=== PATIENT | female | born 1990 | race Hispanic/Latino ===

== ENCOUNTER 2018-08-16 07:30 | Emergency (ER) | payer BC ==
[2018-08-16] MEDS ORDERED: Fentanyl 100 MCG/2 ML VIAL ONE (08:11)
[2018-08-16 08:19] LABS: #Basophils 0.1 thou/uL (0.0-0.2); #Eosinphils 0.1 thou/uL (0.0-0.7); #Lymphocytes 2.3 thou/uL (1.20-3.40); #Monocytes 0.5 thou/uL (0.11-0.59); #Neutrophils 6.5 thou/uL (1.40-6.50); %Basophils 0.6 % (0.0-1.0); %Eosinophils 1.3 % (0.0-10.0); %Lymphocytes 24.4 % (21.0-51.0); %Monocytes 4.9 % (0.0-10.0); %Neutrophils 68.8 % (42.0-75.0); Hemoglobin 13.8 g/dL (12.0-16.0); Mean Corpuscular HGB CONC 32.6 g/dL (32.0-36.0); Mean Corpuscular Hemoglobin 30.4 pg (27.0-31.0); Mean Corpuscular Volume 93.3 fL (78.0-98.0); Mean Platelet Volume 8.8 fL (7.4-10.4); Platelet Count 216 thou/uL (130-400); RBC Distribution Width 12.3 % (11.5-14.5); Red Blood Cell (RBC) Count 4.54 mill/uL (4.20-5.40); White Blood Cell (WBC) Count 9.5 thou/uL (4.8-10.8)
[2018-08-16 08:24] LABS: BHCG - Serum Negative (NEGATIVE); Pregs Control Background? CLEAR/WHITE (CLR/WHITE); Pregs Control Bar Appear? YES (CONTROL BAR)
[2018-08-16 08:29] LABS: PTT 27.7 SEC (22.9-36.1); Prothrombin Time 13.1 SEC (12.0-14.7)
[2018-08-16 08:37] LABS: ALT (SGPT) 26 U/L (8-55); AST (SGOT) 36 U/L (5-34); Albumin 4.3 g/dL (3.5-5.0); Alcohol Less than 10 mg/dL (Less than 10); Alkaline Phosphatase 118 U/L (40-150); Anion Gap 11 mmol/L (10-20); BUN (Urea Nitrogen) 13 mg/dL (7.0-18.7); Bilirubin, Total 0.3 mg/dL (0.2-1.2); Calc. Creatinine Clearance 0 mL/min (70-130); Calcium 9.5 mg/dL (7.8-10.44); Carbon Dioxide 26 mmol/L (22-29); Chloride 103 mmol/L (98-107); Estimated GFR-MDRD 90; Globulin 3.5 g/dL (2.4-3.5); Glucose 112 mg/dL (70-105); Lipase 28 U/L (8-78); Potassium 3.8 mmol/L (3.5-5.1); Protein, Total 7.8 g/dL (6.0-8.3); Sodium 136 mmol/L (136-145)
--- NOTE | 2018-08-16 08:43 | RAD ---
SINGLE VIEW OF THE CHEST: Comparison: None. History: Chest pain, low back pain. FINDINGS: Single view of the chest shows a normal sized cardiomediastinal silhouette. There is no evidence of c onsolidation, mass, or pleural effusion. The bones are unremarkable. IMPRESSION: No evidence of acute cardiopulmonary disease. POS: [facility]
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
[2018-08-16] MEDS ORDERED: Lidocaine 1% PF 5 ML VIAL ONE (11:00)
[2018-08-16] MEDS ORDERED: Morphine 2 MG/ML SYRINGE ONE (11:01)
[2018-08-16] MEDS ORDERED: ISOVUE-370 76%-LOCM 1 ML ONE (11:59)
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
--- NOTE | 2018-08-21 21:29 | EKG ---
Test Reason : Blood Pressure : / mmHG Vent. Rate : 101 BPM Atrial Rate : 101 BPM P-R Int : 142 ms QRS Dur : 078 ms QT Int : 342 ms P-R-T Axes : 041 024 -07 degrees QTc Int : 443 ms Sinus tachycardia Otherwise normal ECG Confirmed by DUNCAN WATKINS MD ([id number]), sports editor ADELE MCDONALD ([id number]) on 08/21/2018 9:28:01 PM Also confirmed by DUNCAN WATKINS MD ([id number]), sports editor ADELE MCDONALD ([id number]) on 08/21/2018 9:28:57 PM Referred By: Confirmed By:DUNCAN WATKINS MD
== END 2018-08-16 12:29 | disposition home or self-care (01) ==
LOC: ERS 07:30
DX: S52.501A Unspecified fracture of the lower end of right radius, initial encounter for closed fracture (principal); S52.611A Displaced fracture of right ulna styloid process, initial encounter for closed fracture; V49.59XA Passenger injured in collision with other motor vehicles in traffic accident, initial encounter
CPT/HCPCS: 25605; 70450; 71045; 71260; 72125; 74177; 80053; 80307; 83690; 84703; 85025; 85610; 85730; 93005; 96361; 96374; 96375; J2001; J2270; J3010

== ENCOUNTER 2018-08-24 11:28 | Day surgery (SDC) | payer BC ==
[2018-08-23 15:09] VITALS: BMI 29.2
[2018-08-24] MEDS ORDERED: Midazolam HCl 2 mg/2 ml Vial ONE ×2 (11:38→13:10)
[2018-08-24] MEDS ORDERED: Fentanyl 100 MCG/2 ML VIAL ONE ×2 (11:39→13:10)
[2018-08-24] MEDS ORDERED: Dexamethasone 4 mg/ml Vial ONE ×2 (11:40→13:46)
[2018-08-24] MEDS ORDERED: CEFAZOLIN 2 GM/50 ML BAG ONE (13:06)
[2018-08-24] MEDS ORDERED: Bupivacaine HCl 0.5%/Epinephrine 1:200,000/PF 30 ml Vial ONE (13:33)
[2018-08-24] MEDS ORDERED: PHENYLEPHRINE-NS 100 MCG/ML 10 ML SYRINGE ONE (14:58)
[2018-08-24] MEDS ORDERED: PROPOFOL 200 MG/20 ML VIAL ONE (14:58)
[2018-08-24] MEDS ORDERED: Dexamethasone 20 MG/5 ML VIAL ONE (14:58)
[2018-08-24] MEDS ORDERED: Lidocaine 1% PF 5 ML VIAL ONE (14:58)
[2018-08-24] MEDS ORDERED: Ondansetron PF 4 MG/2 ML Vial ONE ×2 (14:58→15:47)
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
--- NOTE | 2018-08-25 14:19 | RAD ---
RIGHT WRIST THREE VIEWS: HISTORY: A 27-year-old female, status post fracture and internal fixation. FINDINGS: A metal plate and screws have been placed, stabilizing the distal radial comminuted fracture, with im proved position and alignment. Ulnar styloid process fracture. Mild negative ulnar variance. IMPRESSION: 1. Metal plate and screws stabilizing the distal radial comminuted fracture with improved position a nd alignment. 2. Ulnar styloid process fracture. POS: [facility]
== END 2018-08-24 17:53 | disposition home or self-care (01) ==
LOC: SDC 11:28 → EEVIPCON 11:28 → SDC 17:53
PROVIDERS: ATTEND Orthopaedic Surgery
PROC: 0PSH04Z Reposition Right Radius with Internal Fixation Device, Open Approach (ICD-10-PCS; principal; 2018-08-24)
DX: S52.531A Colles' fracture of right radius, initial encounter for closed fracture (principal); V89.2XXA Person injured in unspecified motor-vehicle accident, traffic, initial encounter
CPT/HCPCS: 76001; 96374; C1713; J1100; J2250; J2405; J3010